=== PATIENT | male | born 1965 | race African-American/Black ===

== ENCOUNTER 2019-09-20 18:13 | Emergency (ER) | payer MEDICAID ==
[~2019-09-20] VITALS: Ht 170.2 cm; Wt 59.0 kg
[~2019-09-20 18:13] MED LIST: CYAN-50 PO; PROT40 PO
[2019-09-20] MEDS ORDERED: omeprazole (18:17)
[2019-09-20] MEDS ORDERED: lasix (18:18)
[2019-09-20] MEDS ORDERED: digoxin (18:18)
[2019-09-20] MEDS ORDERED: benazepril (18:18)
[2019-09-20] MEDS ORDERED: SODIUM CHLORIDE 0.9% 1,000 ML IV ONE (19:12)
[2019-09-20] MEDS ORDERED: KETOROLAC 30MG/ML VIAL IV STA (19:12)
[2019-09-20] MEDS ORDERED: ONDANSETRON HCL 4MG/2ML INJ IV STA (19:12)
[2019-09-20] MEDS ORDERED: MORPHINE SULFATE 4 MG/ML CPJ (NOT FOR IM USE) IV ONE ×2 (20:15→22:45)
[2019-09-20 20:51] LABS: BASOPHILS % 0.5 % (0.0-2.0); EOSINOPHILS % 0.3 % (0.0-5.0); HEMATOCRIT. 33.6 % (42.0-52.0); HEMOGLOBIN. 11.6 g/dL (14.0-18.0); LYMPHOCYTES % 12.4 % (20.0-50.0); MEAN CORPUSCULAR HEMOGLOBIN 34.4 pg (28.0-32.0); MEAN CORPUSCULAR VOLUME 99.5 fL (80.0-94.0); MEAN PLATELET VOLUME 7.8 fl (7.4-10.4); MONOCYTES % 7.6 % (2.0-8.0); NEUTROPHILS % 79.2 % (40.0-76.0); PLATELET 336 x1000/uL (130-400); RED BLOOD CELL COUNT 3.38 mill/uL (4.7-6.1); RED CELL DISTRIBUTION WIDTH 17.7 % (11.6-14.6)
[2019-09-20 20:52] LABS: CHLORIDE 100 mEq/L (98-107)
[2019-09-20] MEDS ORDERED: LORAZEPAM 2MG/ML CPJ ONE (21:10)
[2019-09-20] MEDS ORDERED: GADOBENATE DIMEGLUMINE 529 MG/ML 10ML IV ONE (21:15)
[2019-09-20] MEDS ORDERED: LORAZEPAM 2MG/ML CPJ IV ONE ×2 (21:15)
[2019-09-20] MEDS ORDERED: KCL 20MEQ/100ML PREMIX 100 ML IV ONE (22:30)
[2019-09-20] MEDS ORDERED: VANCOMYCIN 1 G PREMIX 200 ML IV SCH (22:30)
[2019-09-20] MEDS ORDERED: CEFTRIAXONE 2 G PREMIX 50 ML IV ONE (22:30)
[2019-09-21] MEDS ORDERED: MORPHINE SULFATE 4 MG/ML CPJ (NOT FOR IM USE) IV ONE (06:00)
[2019-09-21] MEDS ORDERED: ONDANSETRON HCL 4MG/2ML INJ IV STA ×2 (09:16→13:14)
[2019-09-21] MEDS ORDERED: MORPHINE SULFATE 4 MG/ML CPJ (NOT FOR IM USE) IV STA ×2 (09:16→13:14)
[2019-09-21 13:23] VITALS: BP 160/100
== END 2019-09-21 13:29 | disposition short-term general hospital (02) ==
LOC: ER 18:13
DX: G06.2 Extradural and subdural abscess, unspecified (principal); M86.9 Osteomyelitis, unspecified; E87.6 Hypokalemia; I11.0 Hypertensive heart disease with heart failure; I50.9 Heart failure, unspecified; Z79.899 Other long term (current) drug therapy
CPT/HCPCS: 36415; 36573; 70450; 71045; 72158; 74176; 76937; 80053; 83690; 84484; 85025; 87040; 93005; 99291; A9577; C1725; J0696; J1885; J2060; J2270; J2405; J3370; J3480; J7030